=== PATIENT | male | born 1985 | race Caucasian/White ===

== ENCOUNTER 2019-12-11 09:16 | Emergency (ER) | payer OTHER ==
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
[2019-12-11 10:34] VITALS: BP 117/76; PULSE 79; RESP 18; TEMP 98.4
== END 2019-12-11 10:34 | disposition home or self-care (01) ==
LOC: EC 09:16
DX: S16.1XXA Strain of muscle, fascia and tendon at neck level, initial encounter (principal); F17.200 Nicotine dependence, unspecified, uncomplicated; V49.9XXA Car occupant (driver) (passenger) injured in unspecified traffic accident, initial encounter; Y92.488 Other paved roadways as the place of occurrence of the external cause; Y93.89 Activity, other specified
CPT/HCPCS: 72050; 99284